=== PATIENT | male | born 1995 | race Caucasian/White ===

== ENCOUNTER 2021-07-27 03:46 | Emergency (ER) | payer OTHER ==
[~2021-07-27] VITALS: Ht 180.3 cm; Wt 130.6 kg
[2021-07-27 04:21] VITALS: BP 147/81
--- NOTE | 2021-07-27 04:32 | NUR ---
SWABBED PATIENT AND SENT TO LAB
[2021-07-27] MEDS ORDERED: ALBU0.0912 IH (06:13)
[2021-07-27 06:24] VITALS: BP 147/81
--- NOTE | 2021-07-27 06:24 | NUR ---
SEEN BY MURPHY NO NURSING INTERVENTIONS NEEDED
--- NOTE | 2021-07-27 06:24 | NUR ---
Patient discharged with v/s stable. Written and verbal after care instructions given and explained. Patient alert, oriented and verbalized understanding of instructions. Ambulatory with steady gait. All questions addressed prior to discharge. ID band removed. Patient advised to follow up with PMD. Rx of albuterol sulfate given. Patient educated on indication of medication including possible reaction and side effects. Opportunity to ask questions provided and answered.
[2021-07-29] MEDS ORDERED: ONDA-188 SL (00:21)
== END 2021-07-27 06:24 | disposition home or self-care (01) ==
LOC: MED 03:46
DX: U07.1 COVID-19 (principal)
CPT/HCPCS: 71045; 87804; 99284

== ENCOUNTER 2021-11-18 21:41 | Emergency (ER) | payer OTHER ==
[~2021-11-18] VITALS: Ht 172.7 cm; Wt 140.6 kg
[~2021-11-18 21:41] MED LIST: ALBU0.0912 IH; ONDA-188 SL
[2021-11-18 21:45] VITALS: BP 138/79
--- NOTE | 2021-11-18 21:57 | NUR ---
PT TAKEN TO BED 10
--- NOTE | 2021-11-18 22:15 | NUR ---
RECEIVED IN BED 10 WITH C/O COUGH X 4 DAYS. NO COUGH NOTED AT PRESENT
--- NOTE | 2021-11-18 23:00 | NUR ---
Dr. Rivers examining patient.
[2021-11-18] MEDS ORDERED: ALBU0.0912 IH (23:32)
[2021-11-18] MEDS ORDERED: AZIT250T11 PO (23:32)
[2021-11-18] MEDS ORDERED: PRED20TA5 PO (23:32)
[2021-11-18] MEDS ORDERED: BENZ200C4 PO (23:32)
[2021-11-18] MEDS ORDERED: PROM118S5 PO (23:32)
[2021-11-18 23:40] VITALS: BP 138/79
--- NOTE | 2021-11-18 23:40 | NUR ---
Patient discharged with v/s stable. Written and verbal after care instructions given and explained. Patient alert, oriented and verbalized understanding of instructions. Ambulatory with steady gait. All questions addressed prior to discharge. ID band removed. Patient advised to follow up with PMD. Rx of LORATADINE, PROMETHAZINE given. Patient educated on indication of medication including possible reaction and side effects. Opportunity to ask questions provided and answered.
== END 2021-11-18 23:40 | disposition home or self-care (01) ==
LOC: MED 21:41
DX: J20.9 Acute bronchitis, unspecified (principal); Z79.899 Other long term (current) drug therapy; Z79.2 Long term (current) use of antibiotics
CPT/HCPCS: 99283